=== PATIENT | female | born 1965 | race Caucasian/White ===

== ENCOUNTER 2018-10-07 00:23 | Emergency (ER) | payer MEDICAID, OTHER ==
[2018-10-07] MEDS: HYDROCODONE/APAP (5/325) TAB PO (02:15)
[2018-10-07 02:49] LABS: URINE BLOOD (Dip) POC Negative (NEGATIVE); URINE GLUCOSE (Dip) POC Negative (NEGATIVE); URINE KETONES (Dip) POC Negative (NEGATIVE); URINE LEUKOCYTE EST (Dip) POC Negative (NEGATIVE); URINE NITRITE (Dip) POC Negative (NEGATIVE); URINE TOTAL PROTEIN POC Negative (NEGATIVE)
== END 2018-10-07 03:24 | disposition home or self-care (01) ==
LOC: FTE 00:23
DX: R10.30 Lower abdominal pain, unspecified (principal); I10 Essential (primary) hypertension
CPT/HCPCS: 73510; 81003; 99283-25